=== PATIENT | female | born 1985 ===

== ENCOUNTER 2016-12-09 03:01 | Emergency (ER) | payer SELFPAY ==
[~2016-12-09] VITALS: Ht 170.2 cm; Wt 61.2 kg
[2016-12-09 03:15] VITALS: BP 122/80
[2016-12-09] MEDS ORDERED: Bacitracin Oint UD TOPIC ONE (03:30)
[2016-12-09] MEDS ORDERED: Lidocaine 1% MPF 10mg/ml 5ml INJ ONE (03:30)
--- NOTE | 2016-12-09 04:03 | Emergency Room Report ---
History of Present Illness General Chief Complaint: Laceration Source: Patient Present Illness HPI Was cutting cheese - cut her L index finger. R handed. Had been drinking. Tetanus less than 10 years. Went to [facility] and came to us. Some bleeding. Pain is 10/10, worsening, constant, not radiate. Some numbness of finger tip. Scheduled for implant revision surgery 12/20. Not . No medical problems. No somatic complaints. Planning trip to [place] next week. Allergies: Coded Allergies: No Known Allergies (Unverified , 12/09/16) Patient History Past Surgical History: other - augmentation Social History: Reports: alcohol use Social History Narrative with sig other Last Menstrual Period: 10 days ago Now: No Reviewed Nursing Documentation: PMH: Agreed, PSxH: Agreed Nursing Documentation-PMH Past Medical History: No Stated History Review of Systems All Other Systems: negative except mentioned in HPI Physical Exam Vital Signs Date Time Temp Pulse Resp B/P (MAP) Pulse Ox O2 Delivery O2 Flow Rate FiO2 12/09/16 03:05 98.2 79 18 118/78 98 Room Air Sp02 EP Interpretation: reviewed, normal General Appearance: well appearing, no apparent distress Head: normocephalic, atraumatic Eyes: bilateral eye PERRL, bilateral eye Scleral Injection ENT: hearing grossly normal, normal voice Neck: full range of motion, supple Respiratory: no respiratory distress, speaking full sentences Musculoskeletal: normal range of motion, other - lac Neurologic: alert, normal gait, sensory deficit - tip distal to lac Psychiatric: mood/affect normal Skin: laceration - L index finger, most of pulp linear to nail Procedures Laceration/Wound Repair Laceration/Wound Repair : Consent: Verbal Wound Location: upper extremity Wound's Depth, Shape: linear Wound Length (cm): 2 - 2.5 Wound Explored: clean Irrigated w/ Saline (ccs): 10 Betadine Prep?: Yes Anesthesia: 1% Lidocaine - digital block Volume Anesthetic (ccs): 4 Wound Debrided: minimal Wound Repaired With: sutures Suture Size/Type: 5:0 Layer Closure?: No Sterile Dressing Applied?: Yes Splint Applied?: No Sling Applied?: No Patient Tolerated: Well Complications: None Medical Decision Making Diagnostic Impression: Primary Impression: Laceration of left index finger Qualified Codes: S61.211A - Laceration without foreign body of left index finger without damage to nail, initial encounter ER Course Patient with L index finger tip laceration with some distal sensory loss. No tendon involvement. Needs repair. Tetanus UTD. Dose of motrin given. Laceration repaired after digital block. Tolerated well. Warned patient of need to keep clean and dry (trip to [place]). Patient stable for outpatient observation and treatment. Last Vital Signs Date Time Temp Pulse Resp B/P (MAP) Pulse Ox O2 Delivery O2 Flow Rate FiO2 12/09/16 04:26 81 18 124/86 12/09/16 03:15 98.3 98 Room Air Status: improved Disposition: HOME, SELF-CARE Condition: Improved Scripts Acetaminophen With Codeine (T#3) (TYLENOL #3 TAB*) Y Tab 1 TAB ORAL Q6HR Y for For Pain, #8 TAB Prov: Geraldo Johnson M.D. 12/09/16 Bacitracin (Bacitracin) 28.4 Gm Oint...g. 1 APPLIC TOPIC BID, #14 GM Prov: Geraldo Johnson M.D. 12/09/16 Referrals: NOT CHOSEN LAURA/,REFERRING (PCP) Geraldo Johnson M.D. Dec 09, 2016 04:03
[2016-12-09] MEDS ORDERED: ACETAMINOPHEN-1 EAC1 ORAL (04:10)
[2016-12-09] MEDS ORDERED: BACITRACIN15 GM TOPIC (04:10)
[2016-12-09 04:26] VITALS: BP 124/86
== END 2016-12-09 04:27 | disposition home or self-care (01) ==
LOC: EMR 03:46
DX: S61.211A Laceration without foreign body of left index finger without damage to nail, initial encounter (principal); W26.0XXA Contact with knife, initial encounter; Y92.89 Other specified places as the place of occurrence of the external cause
CPT/HCPCS: 99284